=== PATIENT | female | born 1985 | race Caucasian/White ===

== ENCOUNTER 2022-03-09 13:10 | Emergency (ER) | payer SELFPAY ==
[~2022-03-09] VITALS: Ht 154.9 cm; Wt 92.5 kg
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
[2022-03-09] MEDS ORDERED: LORAZEPAM 0.5 MG TABLET ONE (15:35)
[2022-03-09] MEDS ORDERED: ACETAMINOPHEN ES 500 MG TABLET ONE (15:36)
[2022-03-09] MEDS: LORAZEPAM 0.5 MG TABLET PO ONE (15:41)
[2022-03-09] MEDS: ACETAMINOPHEN ES 500 MG TABLET PO ONE (15:41)
--- NOTE | 2022-03-09 16:45 | NUR ---
Patient discharged to home in stable condition. Written and verbal after care instructions given. Patient verbalizes understanding of instruction.
[2022-03-09 16:48] VITALS: BP 124/83
== END 2022-03-09 16:48 | disposition home or self-care (01) ==
LOC: ER 13:14 → EDSEX 13:14 → ER 16:48
DX: R51.9 Headache, unspecified (principal); F41.9 Anxiety disorder, unspecified
CPT/HCPCS: 84703-TC